=== PATIENT | male | born 1995 | race Caucasian/White ===

== ENCOUNTER 2022-11-28 21:16 | Emergency (ER) | payer SELFPAY ==
[2022-11-28 23:15] LABS: ALT (SGPT) 20 U/L (8-55); AST (SGOT) 23 U/L (5-34); Albumin 4.9 g/dL (3.5-5.0); Alkaline Phosphatase 62 U/L (40-110); Anion Gap 17 mmol/L (10-20); BUN (Urea Nitrogen) 28 mg/dL (8.9-20.6); Bilirubin, Total 0.8 mg/dL (0.2-1.2); Calc. Creatinine Clearance 0 mL/min (70-130); Calcium 9.4 mg/dL (7.8-10.44); Carbon Dioxide 25 mmol/L (22-29); Chloride 98 mmol/L (98-107); Estimated GFR 97; Globulin 2.7 g/dL (2.4-3.5); Glucose 90 mg/dL (70-105); Lipase 29 U/L (8-78); Potassium 3.6 mmol/L (3.5-5.1); Protein, Total 7.6 g/dL (6.0-8.3); Sodium 136 mmol/L (136-145)
[2022-11-28 23:17] LABS: #Eosinphils 0.2 thou/uL (0.0-0.7); #Lymphocytes 1.7 thou/uL (1.20-3.40); #Monocytes 0.7 thou/uL (0.11-0.59); #Neutrophils 7.2 thou/uL (1.40-6.50); %Basophils 0.3 % (0.0-1.0); %Eosinophils 2.3 % (0.0-10.0); %Lymphocytes 17.2 % (21.0-51.0); %Monocytes 6.7 % (0.0-10.0); %Neutrophils 73.5 % (42.0-75.0); Hemoglobin 16.9 g/dL (14.0-18.0); Mean Corpuscular HGB CONC 35.8 g/dL (32.0-36.0); Mean Corpuscular Hemoglobin 32.9 pg (27.0-31.0); Mean Corpuscular Volume 92.1 fl (78.0-98.0); Platelet Count 187 10x3/uL (130-400); RBC Distribution Width 11.4 % (11.5-14.5); Red Blood Cell (RBC) Count 5.14 mill/uL (4.70-6.10); White Blood Cell (WBC) Count 9.8 10x3/uL (4.8-10.8)
[2022-11-28] MEDS ORDERED: Metoclopramide HCl 10 MG/2 ML VIAL ONE (23:20)
[2022-11-28] MEDS ORDERED: diphenhydrAMINE 50 MG/ML VIAL ONE (23:20)
[2022-11-29] MEDS ORDERED: Ketorolac Tromethamine 30 MG/ML VIAL ONE (00:47)
[2022-11-29 03:41] LABS: SARS-CoV-2 NAA Rapid Test Not Detected (NotDetected)
== END 2022-11-29 03:12 | disposition home or self-care (01) ==
LOC: ERS 21:16
DX: R11.2 Nausea with vomiting, unspecified (principal); E86.0 Dehydration; R55 Syncope and collapse; Z20.822 Contact with and (suspected) exposure to COVID-19
CPT/HCPCS: 36415; 70450; 80053; 83690; 85025; 93005; 96361; 96365; 96366; 96375; J1200; J1885; J2765